=== PATIENT | male | born 1990 | race American Indian/Alaskan Native ===

== ENCOUNTER 2019-07-19 17:14 | Emergency (ER) | payer SELFPAY ==
--- NOTE | 2019-07-19 18:44 | Emergency Department Report ---
ED Male HPI - General Chief complaint: Pain General Stated complaint: HEMORRHOIDS BY ANAL AREA Time Seen by Provider: 07/19/19 18:13 Source: patient Mode of arrival: Ambulatory Limitations: No Limitations - Related Data Previous Rx's Medication Instructions Recorded Last Taken Type Hydrocortisone [Anucort-HC SUPPOS] 25 mg RC BID #6 supp.rect 07/19/19 Unknown Rx Hydrocortisone [Anusol-Hc 2.5% TOP 1 gm RC BID 3 Days #30 cream..g. 07/19/19 Unknown Rx CREAM] Lidocaine [Lidocaine GEL] 0.5 gm TP Q3H PRN #30 gel..gram. 07/19/19 Unknown Rx Allergies Allergy/AdvReac Type Severity Reaction Status Date / Time No Known Allergies Allergy Unverified 07/19/19 17:16 ED Review of Systems ROS: Stated complaint: HEMORRHOIDS BY ANAL AREA Other details as noted in HPI Comment: All other systems reviewed and negative ED Past Medical Hx - Past Medical History Previous Medical History?: Yes Additional medical history: hemorrhoids - Surgical History Past Surgical History?: Yes Hx Appendectomy: Yes - Social History Smoking Status: Current Every Day Smoker Substance Use Type: Alcohol - Medications Home Medications: Home Medications Medication Instructions Recorded Confirmed Last Taken Type Hydrocortisone [Anucort-HC SUPPOS] 25 mg RC BID #6 supp.rect 07/19/19 Unknown Rx Hydrocortisone [Anusol-Hc 2.5% TOP 1 gm RC BID 3 Days #30 cream..g. 07/19/19 Unknown Rx CREAM] Lidocaine [Lidocaine GEL] 0.5 gm TP Q3H PRN #30 gel..gram. 07/19/19 Unknown Rx ED Physical Exam - General Limitations: No Limitations General appearance: alert, in no apparent distress - Eye Eye exam: Present: normal appearance - ENT ENT exam: Present: mucous membranes moist - Respiratory Respiratory exam: Present: normal lung sounds bilaterally. Absent: respiratory distress, wheezes, rales, chest wall tenderness, accessory muscle use - Cardiovascular Cardiovascular Exam: Present: regular rate, normal rhythm. Absent: systolic murmur, diastolic murmur, rubs, gallop - Rectal Rectal exam: Present: hemorrhoids, tenderness. Absent: bloody stool, fecal impaction - Extremities Exam Extremities exam: Present: normal inspection - Back Exam Back exam: Absent: CVA tenderness (L) - Neurological Exam Neurological exam: Present: alert. Absent: CN II-XII intact - Psychiatric Psychiatric exam: Present: normal affect, normal mood. Absent: depressed, anxious, flat affect, manic ED Course Vital Signs 07/19/19 17:16 Temperature 98.4 F Pulse Rate 60 Respiratory 20 Rate Blood Pressure 113/72 O2 Sat by Pulse 98 Oximetry ED Medical Decision Making - Medical Decision Making 29-year-old F [place] male with a recurrent external hemorrhoid hemorrhoid causing some tenderness over the last 2 days presents emergency department to seek further treatment options. Stated previously he was they were able to push the hemorrhoid back into his location however he tried to manipulate the hemorrhoid and was unsuccessful. On physical examination the hemorrhoid is swollen brown 2.5cm no evidence of any thrombosis at current no cellulitis no drainage no swelling no rectal discharge no fissures he has been advised on conservative therapy which we will try for the next 48 to 72 hours and read and then be reevaluated by gastroenterology or his primary care provider. Instructed to return to [facility] department should his pain intensifies or he develop fever, rectal discharge, abdominal pain, nausea or vomiting or any symptoms suggesting that this time that his condition is worsening Critical care attestation.: If time is entered above; I have spent that time in minutes in the direct care of this critically ill patient, excluding procedure time. ED Disposition Clinical Impression: External hemorrhoid Disposition: [id number] TO HOME OR SELFCARE Is pt being admited?: No Does the pt Need Aspirin: No Condition: Stable Instructions: Hemorrhoids (ED), Hemorrhoidectomy (ED), Sitz Bath (GEN) Prescriptions: Hydrocortisone [Anucort-HC SUPPOS] 25 mg RC BID #6 supp.rect Hydrocortisone [Anusol-Hc 2.5% TOP CREAM] 1 gm RC BID 3 Days #30 cream..g. Lidocaine [Lidocaine GEL] 0.5 gm TP Q3H PRN #30 gel..gram. PRN Reason: rectal pain Referrals: [facility] [Provider Group] - 3-5 Days
[2019-07-21 12:46] VITALS: BP 133/67
== END 2019-07-19 19:19 | disposition home or self-care (01) ==
LOC: ED 17:14
DX: K64.4 Residual hemorrhoidal skin tags (principal); F17.200 Nicotine dependence, unspecified, uncomplicated; Z90.49 Acquired absence of other specified parts of digestive tract
CPT/HCPCS: 99282